=== PATIENT | male | born 1980 | race Caucasian/White ===

== ENCOUNTER 2021-09-24 08:08 | Day surgery (SDC) | payer OTHER, SELFPAY ==
[2021-09-21 12:33] VITALS: BMI 19.6
--- NOTE | 2021-09-24 07:57 | W.PM.OPSFHP ---
Same Day Surgery H&P Indication for Procedure/HPI DATE OF PROCEDURE: September 24, 2021 CHIEF COMPLAINT/INDICATIONFOR SURGICAL PROCEDURE: Epigastric pain PREOP DIAGNOSIS: Epigastric pain PLANNED PROCEDURE: Operation Date: 09/24/21 09:45 Proposed Procedures p EGD [id number],R10.13(Not Applicable) - Suman Christianson MD Medications/Allergies* Home Medications Medication Instructions Recorded Confirmed Type bismuth subsalicylate 525 mg/15 mL 525 mg PO QID 06/29/21 09/21/21 History oral suspension (Pepto-Bismol Max St) escitalopram oxalate 10 mg tablet 10 mg PO DAILY 06/29/21 09/21/21 History (Lexapro) esomeprazole magnesium 40 mg 40 mg PO BID 06/29/21 09/21/21 History capsule,delayed release (Nexium) ibuprofen 600 mg tablet 600 mg PO Q6H PRN Pain 09/21/21 09/21/21 History Allergies/Adverse Reactions Allergy/AdvReac Type Severity Reaction Status Date / Time erythromycin base Allergy UNSURE Verified 09/20/21 13:18 [From E-Mycin] Pertinent History/Comorbid Conditions* Family History (Updated 06/29/21 @ 10:45 by Yuki Nunes) CAD (coronary artery disease) Father Social History Smoking and tobacco status: former smoker Pertinent Exam Findings alert, oriented x 3, clear to auscultation bilaterally, regular rate & rhythm, operative site marked and procedure specific exam findings Recommendations Surgery/Procedure today Coding Level of Care Code Acute Gerontological Nurse Practitioner for Gino Thomason
[2021-09-24 08:44] VITALS: BP 111/77; PULSE 58; RESP 18; TEMP 36.1; O2SAT 98
[2021-09-24] MEDS: sodium chloride 0.9% 1,000 ML 30 ML IV (08:44)
--- NOTE | 2021-09-24 09:42 | ANES.PREANE2 ---
Pre-Anesthetic Assessment Height/Weight: Height 1.88 m Weight 69.4 kg Temp Pulse Resp BP Pulse Ox O2 Del Method 97.0 F L 58 L 18 111/77 98 09/24/21 08:44 09/24/21 08:44 09/24/21 08:44 09/24/21 08:44 09/24/21 08:44 09/24/21 08:44 Preop Diagnosis: Epig pain Operation Date: 09/24/21 09:45 Proposed Procedures p EGD 40783,R10.13(Not Applicable) - Suman Christianson MD Familial anesthetic complications: None Was Beta Randy taken within 24 hours: N/A Was Clonidine taken within 24 hours: N/A Last intake: Intake Last Liquid Date 09/23/21 Last Liquid Time 21:30 Last Solid Date 09/23/21 Last Solid Time 21:30 Social Tobacco and No alcohol Exam alert, oriented x 3 and regular rate & rhythm Airway Submandibular: within normal limits Cervical ROM: within normal limits Mallampati: Class II Dentition: false (upper) Pulmonary Chronic Obstructive Pulmonary Disease GI Gastroesophageal Reflux Disease Neuropsych Anxiety Anesthetic Plan ASA status: 2 Anesthesia: MAC Medications/Allergies Home Medications Medication Instructions Recorded Confirmed Last Taken Type bismuth subsalicylate 525 mg/15 mL 525 mg PO QID 06/29/21 09/24/21 09/23/21 History oral suspension (Pepto-Bismol Max St) escitalopram oxalate 10 mg tablet 10 mg PO DAILY 06/29/21 09/24/21 09/23/21 History (Lexapro) esomeprazole magnesium 40 mg 40 mg PO BID 06/29/21 09/24/21 09/23/21 History capsule,delayed release (Nexium) ibuprofen 600 mg tablet 600 mg PO Q6H PRN Pain 09/21/21 09/24/21 09/23/21 History Allergies Allergy/AdvReac Type Severity Reaction Status Date / Time erythromycin base Allergy UNSURE Verified 09/24/21 08:41 [From E-Mycin] Current Medications Generic Name Dose Route Start Last Admin Trade Name Freq PRN Reason Stop Dose Admin Sodium Chloride 1,000 mls @ 30 mls/hr 09/24/21 08:15 09/24/21 08:44 Sodium Chloride 0.9% IV 30 mls/hr .Q24H ALEX Administration PFSH Anesthesia Family History Father CAD (coronary artery disease) Social History Smoking and tobacco status: former smoker Data Anesthesia Cardiac Studies: No Data to Display
[2021-09-24 11:04] VITALS: BP 98/58; PULSE 49; RESP 16; TEMP 36.2; O2SAT 99
[2021-09-24 11:19] VITALS: BP 107/74; PULSE 59; RESP 18; O2SAT 100
--- NOTE | 2021-09-24 12:56 | ANE.PACU2 ---
Inpatient post-anesthesia follow up: Airway intact: Yes Vital signs: Temperature 97.1 F Pulse Rate 59 Respiratory Rate 18 Blood Pressure 107/74 Pulse Oximetry 100 Oxygen Delivery Me thod Room Air Oxygen Flow Rate Fraction of Inspir ed Oxygen Hydration adequate: Yes Nausea and vomiting: No Pain level: 1 Mental status: Baseline
[2021-09-25 13:36] LABS: H. Pylori / CLO Test Positive
== END 2021-09-24 11:35 | disposition home or self-care (01) ==
PROVIDERS: PCP Family Medicine; Visit Provider Internal Medicine
PROC: 0DJ08ZZ Inspection of Upper Intestinal Tract, Via Natural or Artificial Opening Endoscopic (ICD-10-PCS; CPT 43235; principal; 2021-09-24 09:45)
DX: R10.13 Epigastric pain (principal); K29.70 Gastritis, unspecified, without bleeding; J44.9 Chronic obstructive pulmonary disease, unspecified; K21.9 Gastro-esophageal reflux disease without esophagitis; F41.9 Anxiety disorder, unspecified; Z82.49 Family history of ischemic heart disease and other diseases of the circulatory system; Z87.891 Personal history of nicotine dependence
CPT/HCPCS: 43239; 87077; J2704; J7030

== ENCOUNTER → 2021-10-02 07:33 | Outpatient (BNVA) | payer OTHER, SELFPAY | PROVIDERS: PCP Family Medicine; Visit Provider Urology | DX: R39.9 Unspecified symptoms and signs involving the genitourinary system (principal); N52.9 Male erectile dysfunction, unspecified; N41.1 Chronic prostatitis | CPT/HCPCS: 81003; 87086 ==

== ENCOUNTER → 2022-02-15 08:05 | Outpatient (BNVA) | payer BC, SELFPAY | PROVIDERS: PCP Family Medicine; Visit Provider Urology | DX: N41.1 Chronic prostatitis (principal); R39.9 Unspecified symptoms and signs involving the genitourinary system | CPT/HCPCS: 81003 ==

== ENCOUNTER → 2022-07-31 10:17 | Outpatient (BNVA) | payer BC, SELFPAY | PROVIDERS: PCP Family Medicine; Visit Provider Urology | DX: R39.9 Unspecified symptoms and signs involving the genitourinary system (principal) | CPT/HCPCS: 81003 ==